=== PATIENT | male | born 1950 | race Caucasian/White ===

== ENCOUNTER 2018-04-15 07:00 | Day surgery (SDC) | payer OTHER ==
[~2018-04-15] VITALS: Ht 167.6 cm; Wt 72.6 kg
[~2018-04-15 07:00] MED LIST: ASPIR 8181 MG PO; CIPROFLOXACIN750 MG PO; CLONAZEPAM1 MG PO; COZAAR25 MG PO; DOCUSATE SODIU100 MG PO; GABAPENTIN600 MG PO; GABAPENTIN800 MG PO; LIPITOR40 MG PO; METHYLPRED4 MG/DOSE- PO; PERCOCET 5/3251 TAB PO; PLAVIX75 MG PO; SYNTHROID50 MCG PO; ULTRAM50 MG PO; ZETIA10 MG PO
[2018-04-16] MEDS ORDERED: DOCUSATE SODIU100 MG PO (07:52)
[2018-04-16] MEDS ORDERED: GABAPENTIN800 MG PO (07:52)
[2018-04-16] MEDS ORDERED: AMOX-CLAV 875-1 EACH PO (07:53)
[2018-04-16] MEDS ORDERED: CLONAZEPAM1 MG PO (07:54)
[2018-04-16] MEDS ORDERED: PERCOCET 5-3251 EACH PO (07:54)
== END 2018-04-16 13:00 | disposition home or self-care (01) ==
LOC: SURH 07:00 → CIR.AMB 07:00 → EDSTATUS 07:30 → SURH 07:30 → O/R 19:58 → PED 19:58 → CIR.AMB 04-16 13:00 → PED 04-16 13:16
DX: M48.061 Spinal stenosis, lumbar region without neurogenic claudication (principal); M47.26 Other spondylosis with radiculopathy, lumbar region; M51.16 Intervertebral disc disorders with radiculopathy, lumbar region; I10 Essential (primary) hypertension; E03.8 Other specified hypothyroidism; M96.0 Pseudarthrosis after fusion or arthrodesis

== ENCOUNTER 2021-05-04 05:15 | Day surgery (SDC) | payer OTHER ==
[~2021-05-04] VITALS: Ht 167.6 cm; Wt 74.4 kg
[~2021-05-04 05:15] MED LIST changes: +AMOX-CLAV 875-1 EACH PO; +PERCOCET 5-3251 EACH PO
[2021-05-04] MEDS ORDERED: COLACE100 MG PO (10:03)
[2021-05-04] MEDS ORDERED: MEDROLPACK PO (10:03)
[2021-05-04] MEDS ORDERED: NEURONTIN800 MG PO (10:03)
[2021-05-04] MEDS ORDERED: DIAZEPAM5 MG PO (10:03)
[2021-05-04] MEDS ORDERED: AMOX-CLAV 875-1 EACH PO (10:03)
[2021-05-04] MEDS ORDERED: PERCOCET 5-3251 EACH PO (10:03)
== END 2021-05-05 18:28 | disposition home or self-care (01) ==
LOC: CIR.AMB 05:15 → SURH 05:15 → PED 05:15 → O/R 05:15 → SURH 07:00 → EDSTATUS 12:15 → SURH 12:15 → O/R 14:02 → PED 14:02 → CIR.AMB 05-05 18:28 → PED 05-05 18:28
PROVIDERS: ATTEND Orthopaedic Surgery Orthopaedic Surgery of the Spine
PROC: 07DR0ZZ Extraction of Iliac Bone Marrow, Open Approach (ICD-10-PCS; 2021-05-04)
PROC: 07DS0ZZ Extraction of Vertebral Bone Marrow, Open Approach (ICD-10-PCS; 2021-05-04)
PROC: 0SG00AJ Fusion of Lumbar Vertebral Joint with Interbody Fusion Device, Posterior Approach, Anterior Column, Open Approach (ICD-10-PCS; principal; 2021-05-04 07:00)
DX: M48.062 Spinal stenosis, lumbar region with neurogenic claudication (principal); M54.16 Radiculopathy, lumbar region; M43.16 Spondylolisthesis, lumbar region
CPT/HCPCS: 20938; 20939; 22533; 22612; 22614; 22840; 22853; C1776

== ENCOUNTER 2022-07-25 12:00 | Inpatient (IN) | payer OTHER ==
[~2022-07-25 12:00] MED LIST changes: +COLACE100 MG PO; +DIAZEPAM5 MG PO; +MEDROLPACK PO; +NEURONTIN800 MG PO
[2022-07-30] MEDS ORDERED: COLACE100 MG PO (11:46)
[2022-07-30] MEDS ORDERED: MEDROLPACK PO (11:47)
[2022-07-30] MEDS ORDERED: PERCOCET 5-3251 EACH PO (11:47)
== END 2022-08-01 10:25 | disposition home or self-care (01) | DRG 472 ==
LOC: O/R 07-30 06:45 → SURH 07-30 06:45 → O/R 07-30 09:28 → SURG 07-30 10:45 → SURH 07-30 22:20
PROVIDERS: ADMIT Orthopaedic Surgery Orthopaedic Surgery of the Spine; ATTEND Orthopaedic Surgery Orthopaedic Surgery of the Spine
PROC: 0RT30ZZ Resection of Cervical Vertebral Disc, Open Approach (ICD-10-PCS; 2022-07-30)
PROC: 4A12X4Z Monitoring of Cardiac Electrical Activity, External Approach (ICD-10-PCS; 2022-07-30)
PROC: 0RG20A0 Fusion of 2 or more Cervical Vertebral Joints with Interbody Fusion Device, Anterior Approach, Anterior Column, Open Approach (ICD-10-PCS; principal; 2022-07-30 10:45)
DX: M50.01 Cervical disc disorder with myelopathy, high cervical region (principal); M47.12 Other spondylosis with myelopathy, cervical region; M48.02 Spinal stenosis, cervical region; I11.9 Hypertensive heart disease without heart failure

== ENCOUNTER 2023-07-01 12:15 | Inpatient (IN) | payer OTHER ==
[~2023-07-01] VITALS: Ht 162.6 cm; Wt 70.8 kg
[2023-07-04] MEDS ORDERED: GABAPENTIN100 M2 PO (13:33)
[2023-07-04] MEDS ORDERED: PERCOCET 5-3251 EACH PO (13:33)
[2023-07-04] MEDS ORDERED: MEDROLPACK PO (13:33)
[2023-07-04] MEDS ORDERED: NEURONTIN800 MG PO (13:34)
[2023-07-04] MEDS ORDERED: COLACE100 MG PO (13:34)
[2023-07-04] MEDS ORDERED: AMOX-CLAV 875-1 EACH PO (13:37)
[2023-07-04 20:13] LABS: HEMATOCRIT 39.3 % (39.0-48.0); HEMOGLOBIN 12.8 g/dL (13-16.00); MEAN CELL VOLUME 98.3 fL (80.0-100.00); MEAN CORPUSCULAR HEMOGLOBIN 31.9 pg (27.00-32.0); MEAN CORPUSCULAR HGB CONC 32.5 g/dl (32.0-36.0); PLATELET COUNT 171 K/uL (150-450); RED CELL DISTRIBUTION WIDTH 12.6 % (11.5-14.5)
== END 2023-07-05 11:30 | disposition home or self-care (01) | DRG 519 ==
LOC: O/R 07-04 06:00 → SURH 07-04 06:00
PROVIDERS: Internal Medicine; ADMIT Orthopaedic Surgery Orthopaedic Surgery of the Spine; ATTEND Orthopaedic Surgery Orthopaedic Surgery of the Spine
PROC: 0SP004Z Removal of Internal Fixation Device from Lumbar Vertebral Joint, Open Approach (ICD-10-PCS; 2023-07-04)
PROC: 0QB00ZZ Excision of Lumbar Vertebra, Open Approach (ICD-10-PCS; 2023-07-04)
PROC: 07DR0ZZ Extraction of Iliac Bone Marrow, Open Approach (ICD-10-PCS; 2023-07-04)
PROC: 4A12X4Z Monitoring of Cardiac Electrical Activity, External Approach (ICD-10-PCS; 2023-07-04)
PROC: 00JU0ZZ Inspection of Spinal Canal, Open Approach (ICD-10-PCS; principal; 2023-07-04 14:00)
DX: M48.061 Spinal stenosis, lumbar region without neurogenic claudication (principal); M96.0 Pseudarthrosis after fusion or arthrodesis; M54.16 Radiculopathy, lumbar region; I10 Essential (primary) hypertension; E03.9 Hypothyroidism, unspecified

== ENCOUNTER 2024-05-29 10:45 | Inpatient (IN) | payer OTHER ==
[~2024-05-29] VITALS: Ht 167.6 cm; Wt 75.7 kg
[~2024-05-29 10:45] MED LIST changes: +GABAPENTIN100 M2 PO
[2024-05-29 11:59] VITALS: BP 167/78
[2024-06-04] MEDS ORDERED: TRAM1TAB98 PO (07:17)
[2024-06-04] MEDS ORDERED: MEDROLPACK PO (07:18)
[2024-06-04] MEDS ORDERED: COLACE100 MG PO (07:18)
[2024-06-04] MEDS ORDERED: NEURONTIN300 MG PO (07:19)
[2024-06-04] MEDS ORDERED: VANCOMYCIN HCL 1,000 MG in 0.9 % SODIUM CHLORIDE 250 ML IV ONE (08:45)
[2024-06-04] MEDS ORDERED: HEMOSTATIC MATRIX WITH THROMBIN KIT TOP ONE (08:45)
[2024-06-04] MEDS ORDERED: METHYLPREDNISOLONE SOD SUCC 125 MG VIAL IV ONE ×2 (08:45)
[2024-06-04] MEDS ORDERED: LIDOCAINE HCL 1%/EPINEPHRINE 20ML VIAL IJ ONE (08:45)
[2024-06-04] MEDS ORDERED: CEFAZOLIN SODIUM 2,000 MG in 0.9 % SODIUM CHLORIDE 100 ML IV ONE (08:45)
[2024-06-04] MEDS ORDERED: VANCOMYCIN HCL 1,000 MG VIAL IR ONE (08:45)
[2024-06-04] MEDS ORDERED: SUGAMMADEX SODIUM 200 MG/2 ML VIAL IV ONE (09:30)
[2024-06-04] MEDS ORDERED: MORPHINE SULFATE 4 MG/ML VIAL IV ONE ×2 (10:25→10:55)
== END 2024-06-04 12:15 | disposition home or self-care (01) | DRG 460 ==
LOC: EDSTATUS 10:45 → O/R 06-04 05:10 → CIR.AMB 06-04 07:00 → SURH 06-04 10:45 → CIR.AMB 06-04 10:45 → EDSTATUS 06-04 10:45 → O/R 06-04 12:15
PROVIDERS: ADMIT Orthopaedic Surgery Orthopaedic Surgery of the Spine; ATTEND Orthopaedic Surgery Orthopaedic Surgery of the Spine
PROC: 0SG70JZ Fusion of Right Sacroiliac Joint with Synthetic Substitute, Open Approach (ICD-10-PCS; principal; 2024-06-04 07:00)
DX: M46.1 Sacroiliitis, not elsewhere classified (principal); I11.9 Hypertensive heart disease without heart failure; I25.10 Atherosclerotic heart disease of native coronary artery without angina pectoris; Z95.1 Presence of aortocoronary bypass graft

== ENCOUNTER 2025-03-26 05:57 | Day surgery (SDC) | payer OTHER ==
[2025-03-22 08:51] VITALS: BP 165/77
[2025-03-22 09:54] LABS: URINE APPEARANCE Clear; URINE BILIRRUBIN Negative (NEGATIVE); URINE BLOOD Negative; URINE COLOR Yellow; URINE GLUCOSE Negative (NEGATIVE); URINE KETONE Negative (NEGATIVE); URINE LEUKOCYTE Negative; URINE NITRATE Negative; URINE PROTEIN Negative (NEGATIVE); URINE UROBILINOGEN 0.2 E.U./dl
[2025-03-22 09:55] LABS: URINE BACTERIA 11.9 uL (0.0-1933)
[2025-03-22 10:06] LABS: COVID-19 AG NEGATIVE (NEGATIVE)
[2025-03-22 10:14] LABS: URINE CAST 0.14 uL (0.0-1.40); URINE EPITHELIAL CELLS 0.9 uL (0.0-38.8); URINE RBC 0.5 uL (0.0-20.8); URINE WBC 0.9 uL (0.0-23.2)
[2025-03-22 10:14] LABS: BASO % 0.4 % (0.1-1.2); EOS # 0.21 (0.04-0.54); EOS % 3.8 % (0.7-7.0); LYMPH # 1.52 (1.18-3.74); LYMPH % 27.7 % (19.3-53.1); MEAN PLATELET VOLUME 9.90 fl (9.4-12.4); MONO # 0.62 (0.24-0.82); MONO % 11.3 % (4.7-12.5); NEUT # 3.10 (1.56-6.13); NEUT % 56.4 % (34.0-71.1); RED CELL DISTRIBUTION WIDTH 12.5 % (11.6-14.4)
[2025-03-22 10:15] LABS: INR 1.04
[2025-03-22 10:51] LABS: BUN CREA RATIO 16.0 (7.0-25.0); CREATININE SERUM 0.94 mg/dL (0.70-1.30); GFR 78.67; GLUCOSE FASTING 122.0 mg/dL (65-100); OSMOLALITY SERUM 285.0 MOSM/KG (275-295)
[~2025-03-26] VITALS: Ht 162.6 cm; Wt 75.7 kg
[~2025-03-26 05:57] MED LIST changes: +METFORMIN HCL500 M3 PO; +NEURONTIN300 MG PO; +TAMS0.4C PO; +TRAM1TAB98 PO
[2025-03-26] MEDS ORDERED: GENTAMICIN SULFATE 40 MG/ML VIAL ONE (11:02)
[2025-03-26] MEDS ORDERED: CHLORHEXIDINE GLUCONATE 120 ML BOTTLE TOP ONE (12:30)
[2025-03-26] MEDS ORDERED: SUGAMMADEX SODIUM 200 MG/2 ML VIAL IV ONE (13:15)
[2025-03-26] MEDS ORDERED: MORPHINE SULFATE 4 MG/ML VIAL IV ONE ×2 (15:20→15:50)
[2025-03-26] MEDS ORDERED: hydrALAZINE HCL 20 MG VIAL ONE (15:58)
[2025-03-26] MEDS ORDERED: ONDANSETRON HCL 2 MG/ML VIAL ONE (16:19)
== END 2025-03-26 17:30 | disposition home or self-care (01) ==
LOC: CIR.AMB 05:57
PROVIDERS: ATTEND Urology
DX: N32.0 Bladder-neck obstruction (principal); R33.9 Retention of urine, unspecified; N40.1 Benign prostatic hyperplasia with lower urinary tract symptoms